=== PATIENT | female | born 1960 | race Caucasian/White ===

== ENCOUNTER → 2017-02-19 | Outpatient (CLI) | payer BC ==
[~2017-02-19] MED LIST: CALC-51 PO; CETI10TA10 PO; CHOL100010 PO; CYCL0.052 OPB; GLUCPOW41 PO; MULT-506 PO; OMEGCAP2 PO; TRAZ100T29 PO; VITACAP26 PO
--- NOTE | 2017-02-20 12:17 | MAMMOGRAPHY REPORT ---
BILATERAL DIGITAL SCREENING MAMMOGRAM TOMOSYNTHESIS WITH CAD: 02/19/2017 CLINICAL HISTORY: Routine screening. Patient has no complaints. TECHNIQUE: Breast tomosynthesis in addition to standard 2D mammography was performed. Current study was also evaluated with a Computer Aided Detection (CAD) system. COMPARISON: Comparison is made to exams dated: 02/17/2016 mammogram, 02/08/2015 mammogram, 02/05/2014 mammogram, 02/04/2013 mammogram, 02/02/2012 mammogram, and 01/31/2011 mammogram - [facility]. BREAST COMPOSITION: The tissue of both breasts is heterogeneously dense, which may obscure small ma sses. FINDINGS: No suspicious mass, architectural distortion or cluster of microcalcifications is seen. An asymmetry in the medial posterior left breast appears similar to prior mammograms dating back to at least 01/31/2011, therefore likely benign. IMPRESSION: ACR BI-RADS CATEGORY 1: NEGATIVE There is no mammographic evidence of malignancy. A 1 year screening mammogram is recommended. The p atient will receive written notification of the results. Approximately 10% of breast cancers are not detected with mammography. A negative mammographic repor t should not delay biopsy if a clinically suggestive mass is present. Mya Brooks M.D. ay/:02/19/2017 22:40:19 Retreader: Julienne MOON)(Peggy), [facility] letter sent: Normal 1/2 BI-RADS Code: ACR BI-RADS Category 1: Negative
== END | disposition home or self-care (01) ==
LOC: C.MAMM 14:05
PROVIDERS: ATTEND Family Medicine
DX: Z12.31 Encounter for screening mammogram for malignant neoplasm of breast (principal)

== ENCOUNTER → 2018-02-20 | Outpatient (CLI) | payer OTHER ==
--- NOTE | 2018-02-21 14:44 | MAMMOGRAPHY REPORT ---
BILATERAL DIGITAL SCREENING MAMMOGRAM TOMOSYNTHESIS WITH CAD: 02/20/2018 CLINICAL HISTORY: Routine screening. Patient has no complaints. TECHNIQUE: Breast tomosynthesis in addition to standard 2D mammography was performed. Current study was also evaluated with a Computer Aided Detection (CAD) system. COMPARISON: Comparison is made to exams dated: 02/19/2017 mammogram, 02/17/2016 mammogram, 02/08/2015 ma mmogram, 02/05/2014 mammogram, 02/04/2013 mammogram, and 02/02/2012 mammogram - [facility]. BREAST COMPOSITION: The tissue of both breasts is heterogeneously dense, which may obscure small mas ses. FINDINGS: The parenchymal pattern is unchanged. No developing mass, architectural distortion or clus ter of suspicious microcalcifications is seen in either breast. IMPRESSION: ACR BI-RADS CATEGORY 2: BENIGN There is no mammographic evidence of malignancy. A 1 year screening mammogram is recommended. The pa tient will receive written notification of the results. Approximately 10% of breast cancers are not detected with mammography. A negative mammographic report should not delay biopsy if a clinically suggestive mass is present. Mya Brooks M.D. ay/:02/20/2018 15:39:33 [employer] And Se[employer] Manager: Gabby Chambers, [facility] letter sent: Normal 1/2 BI-RADS Code: ACR BI-RADS Category 2: Benign
== END | disposition home or self-care (01) ==
LOC: C.MAMM 13:28
PROVIDERS: ATTEND Family Medicine
DX: Z12.31 Encounter for screening mammogram for malignant neoplasm of breast (principal)

== ENCOUNTER → 2018-02-27 | Outpatient (CLI) | payer OTHER ==
--- NOTE | 2018-02-27 09:02 | DIAGNOSTIC IMAGING REPORT ---
(CHEST) THORAX WITHOUT CT DOSE: 412.39 mGy.cm HISTORY: Cough. Short of breath. TECHNIQUE: Multiaxial CT images of the chest were performed without contrast. A dose lowering technique was utilized adhering to the principles of ALARA. COMPARISON: Chest CT 09/27/2011. FINDINGS: Mild biapical pleural-parenchymal scarring, unchanged. The central airways are patent. No pleural effusions. No pneumothorax. Stable 2 mm nodule within the left lung apex on image 40. Therefore, this is considered to be benign. Mild elevation of the left hemidiaphragm. No focal lung consolidations to suggest pneumonia. Mild pectus excavatum deformity. A 1.7 cm left thyroid nodule. The visualized liver, spleen, and adrenal glands are unremarkable. Subcentimeter hypodense lesion within the upper pole the left kidney is too small to characterize but statistically represents a cyst. Normal caliber thoracic aorta. The heart is normal in size. Subcentimeter mediastinal lymph nodes do not meet CT criteria for pathologic involvement. No hilar lymphadenopathy. IMPRESSION: 1. No focal lung consolidations to suggest pneumonia. 2. Mild elevation of the left hemidiaphragm. 3. A 1.7 cm left thyroid nodule. Dedicated thyroid ultrasound is recommended for further evaluation. Electronically signed by: Kirill Cormier M.D. 02/27/2018 9:01 AM Dictated Date/Time: 02/27/2018 8:52 AM
== END | disposition home or self-care (01) ==
LOC: C.CTS 08:35
PROVIDERS: ATTEND Family Medicine
DX: R05 Cough (principal); R06.09 Other forms of dyspnea; E04.1 Nontoxic single thyroid nodule

== ENCOUNTER → 2018-03-05 | Outpatient (CLI) | payer OTHER ==
--- NOTE | 2018-03-05 12:17 | DIAGNOSTIC IMAGING REPORT ---
ADDENDUM IMPRESSION: IMPRESSION: #2 should read several small left thyroid lobe cysts Electronically signed by: Teofilo Gonzalez M.D. 03/06/2018 7:03 AM Dictated Date/Time: 03/06/2018 7:02 AM ORIGINAL REPORT SOFT TISS HEAD/NECK-THYROID HISTORY: Thyroid nodule NON TOXIC THYROID NODULE COMPARISON: CT chest 02/27/2018 FINDINGS: Right lobe: Maximum dimension 4.9 cm. Uniform echogenicity. Left lobe: Maximum dimension 4.4 cm. 3 and 4 mm cysts at the lower pole. 2.0 x 1.2 cm heterogeneous partially cystic and partially echogenic nodule upper pole left thyroid. Although somewhat difficult to target, fine-needle aspiration should be considered. Isthmus: No nodules. IMPRESSION: 1. Normal right thyroid. 2. Several small left renal cyst. 3. Complex partially echogenic nodule upper aspect left thyroid. Follow-up considerations include a six-month follow-up versus fine-needle aspiration with ultrasound guidance. The above report was generated using voice recognition software. It may contain grammatical, syntax or spelling errors. Electronically signed by: Teofilo Gonzalez M.D. 03/05/2018 12:16 PM Dictated Date/Time: 03/05/2018 12:13 PM
== END | disposition home or self-care (01) ==
LOC: C.ULTR 11:40
PROVIDERS: ATTEND Family Medicine
DX: E04.1 Nontoxic single thyroid nodule (principal)

== ENCOUNTER → 2018-03-21 | Outpatient (CLI) | payer OTHER ==
--- NOTE | 2018-03-21 11:50 | DIAGNOSTIC IMAGING REPORT ---
ULTRASOUND GUIDED FINE-NEEDLE ASPIRATION OF LEFT LOBE THYROID NODULE CLINICAL HISTORY: Left lobe thyroid nodule. COMPARISON STUDY: Thyroid ultrasound March 05, 2018. PROCEDURE: Sonography thyroid gland again demonstrated a 2 cm mixed solid and cystic nodule within the upper pole of the left lobe. This was targeted for fine needle aspiration. Procedure, risks and benefits were discussed with the patient including the risk of bleeding, infection and injury to adjacent structures. The patient agreed to the procedure and informed written consent was obtained. The procedure was performed by Dr. Lamar following a timeout. Skin was prepped and draped in sterile fashion and local anesthesia was achieved with 1% lidocaine. Under direct ultrasound guidance, 1 25-gauge fine aspiration was performed. The sample was deemed preliminarily adequate by pathology. The patient tolerated the procedure well and no immediate complications were evident. IMPRESSION: Successful ultrasound guided fine needle aspiration of 2 cm left lobe thyroid nodule. Electronically signed by: Kin Lamar M.D. 03/21/2018 11:49 AM Dictated Date/Time: 03/21/2018 11:47 AM
== END | disposition home or self-care (01) ==
LOC: C.ULTR 10:50
PROVIDERS: ATTEND Family Medicine
DX: E04.1 Nontoxic single thyroid nodule (principal)

== ENCOUNTER 2025-08-26 05:34 | Observation (INO) ==
--- NOTE | 2025-08-04 09:41 | PAT Medication Instructions ---
Medication Instructions Date of Service August 04, 2025 Home Medications calcium carbonate (Calcium 500) 500 mg PO QAM cholecalciferol (vitamin D3) 25 mcg (1,000 unit) tablet (Vitamin D3) 1,000 unit PO QAM PRN hydroxyzine HCl 25 mg tablet 25 mg PO HS metformin 500 mg tablet 500 mg PO QAM omega-3 fatty acids 1,000 mg PO QAM pantoprazole 40 mg tablet,delayed release 40 mg PO QAM atorvastatin 20 mg tablet 20 mg PO QAM pregabalin 50 mg capsule 50 mg PO BID STOP taking 2 weeks before surgery (or as soon as possible if surgery is within 2 weeks) omega-3 fatty acids 1,000 mg PO QAM DO NOT take the morning of surgery calcium carbonate (Calcium 500) 500 mg PO QAM cholecalciferol (vitamin D3) 25 mcg (1,000 unit) tablet (Vitamin D3) 1,000 unit PO QAM PRN metformin 500 mg tablet 500 mg PO QAM Take morning of surgery With a small sip of water, OTHERWISE NOTHING TO EAT OR DRINK AFTER MIDNIGHT: pantoprazole 40 mg tablet,delayed release 40 mg PO QAM atorvastatin 20 mg tablet 20 mg PO QAM pregabalin 50 mg capsule 50 mg PO BID Take evening before surgery hydroxyzine HCl 25 mg tablet 25 mg PO HS pregabalin 50 mg capsule 50 mg PO BID Other Notes If you have any questions please call us at [phone] or [phone] or [phone] or [phone]
--- NOTE | 2025-08-06 14:38 | Anesthesiology Consultation ---
Date of Service August 06, 2025 Assessment & Plan (1) Encounter for pre-operative examination: - Check BSG DOS - Infectious disease screening: Per assessment on 08/06/25- No known recent infectious disease contacts or current infectious disease symptoms. - Acceptable risk for surgery pending surgeon-ordered PCP preop evaluation ([facility], appt ~08/14). Chart Review Chart Review: Patient seen in Pre Admission Testing Teaching & Discussion Pre-Anesthesia Teaching/Discussion Notes: Instructed NPO after midnight before surgery,except medications with 15 cc of water. Medication instructions provided according to the PAT guidelines. History Surgery Operation Date: 08/26/25 07:00 Proposed Procedures p Right Patella Femoral Replacement to Total Knee Arthroplasty - Josesito Vargas MD Height/Weight Height: 5 ft 5 in Weight: 82.7 kg Allergies Allergy/AdvReac Type Severity Reaction Status Date / Time No Known Allergies Allergy Unknown Verified 08/03/25 09:46 Medications Home Medications Medication Instructions Recorded Confirmed Last Taken calcium carbonate (Calcium 500) 500 mg PO QAM 12/14/19 08/03/25 09/10/24 cholecalciferol (vitamin D3) 25 1,000 unit PO QAM PRN winter only 12/14/19 08/03/25 09/10/24 mcg (1,000 unit) tablet (Vitamin D3) hydroxyzine HCl 25 mg tablet 25 mg PO HS 09/04/24 08/03/25 09/10/24 metformin 500 mg tablet 500 mg PO QAM 09/04/24 08/03/25 09/10/24 omega-3 fatty acids 1,000 mg PO QAM 09/04/24 08/03/25 09/10/24 pantoprazole 40 mg tablet,delayed 40 mg PO QAM 09/04/24 08/03/25 09/10/24 release atorvastatin 20 mg tablet 20 mg PO QAM 08/03/25 08/03/25 Unknown pregabalin 50 mg capsule 50 mg PO BID 08/03/25 08/03/25 Unknown Past Medical History Medical History GERD (gastroesophageal reflux disease) History of Chiari malformation Repaired 2004 No subsequent/current issues History of COVID-19 06/2023: cold symptoms, resolved except residual altered taste and smell Hyperlipidemia Pre-diabetes Taking metformin daily Exercise / Class Metabolic Activity II 4-5 Yardwork/Stairs/Walk up hill Past Family History Family History Father FHx: colon cancer FHx: liver cancer FHx: lung cancer Other Cancer Lung disease Past Surgical History Surgical History H/O arthroscopic knee surgery H/O sinus surgery H/O toe surgery left foot toe surgery H/O wrist surgery R/L (for OA) History of colonoscopy (2023) History of craniotomy (2004) chiari malformation surgery History of esophagogastroduodenoscopy (EGD) Status post left partial knee replacement (2017) Status post right partial knee replacement (2017) Past Anesthesia History No Hx of Anesthesia Complications and No Family Hx of Anesthesia Complications History of PONV No Hx of Motion Sickness and History of PONV Social History Smoking Status: Never smoker Do You Dip or Chew Tobacco: No Hx Alcohol Use: Yes Alcohol type: beer alcohol intake frequency: 3 or more drinks per day (2-3/day) Hx Substance Use: No substance use type: does not use Review of Systems Patient denies chest pain, shortness of breath, dyspnea on exertion, fever, chills, cough, wheezing, palpitations. Physical Exam Vital Signs BP 111/76 P 90 TEMP 98.4 SP02 95%RA RESP 16 Physical Full cervical extension range of motion. Full TMJ range of motion. TMD 3 finger breaths Mallampati Score III Dentition: intact Lungs: clear throughout to auscultation Cardiac: regular rate and rhythm, no murmurs noted Spine: normal Carotid arteries: negative bruit Extremities: no LE edema Lab Results Anesthesia Preop Results Results Anesthesia Widget: WBC 8.30 K/ul (4.8-10.8) 08/06/25 Hgb 14.0 g/dl (12.0-16.0) 08/06/25 Hct 41.1 % (37.0-47.0) 08/06/25 Plt 378 K/uL (130-400) 08/06/25 Na 135 mmol/L (136-145) L 08/06/25 K 4.7 mmol/L (3.5-5.1) 08/06/25 Cl 98 mmol/L (98-107) 08/06/25 CO2 31 mmol/L (21-32) 08/06/25 BUN 14 mg/dl (6-23) 08/06/25 Creat 0.62 mg/dl (0.6-1.2) 08/06/25 Glucose Level 147 mg/dl (70-99(Fasting)) H 08/06/25 PT 10.5 Seconds (9.0-12.0) 08/06/25 PTT 29 Seconds (21-31) 08/06/25 INR 1.0 (0.9-1.1) 08/06/25 HA1c 6.5 % (4.5-5.6) H 08/06/25 Urine Color Yellow 08/06/25 Urine Appearance Clear (Clear) 08/06/25 Urine pH 6.0 (4.5-7.5) 08/06/25 Urine Specific [place] 1.015 (1.000-1.030) 08/06/25 Urine Protein Negative (Negative) 08/06/25 Urine Glucose (UA) Negative (Negative) 08/06/25 Urine Ketones Negative (Negative) 08/06/25 Urine Blood 1+ (Negative) H 08/06/25 Urine Nitrite Negative (Negative) 08/06/25 Urine Bilirubin Negative (Negative) 08/06/25 Urine Urobilinogen Negative (Negative) 08/06/25 Urine Leukocyte Esterase 2+ (Negative) H 08/06/25 Urine WBC (Auto) 11-20 /hpf (0-5) H 08/06/25 Urine RBC (Auto) 3-5 /hpf (0-2) H 08/06/25 Urine Hyaline Casts (Auto) 0-2 /lpf (0-2) 08/06/25 Urine Epithelial Cells (Auto) 3-5 /hpf (0-2) H 08/06/25 Urine Bacteria (Auto) None Seen (None Seen) 08/06/25 Blood Type O Positive 08/06/25 Antibody Screen NEGATIVE 08/06/25 Testing Laboratory Results Urine culture 08/06/25: probable skin teresa Electrocardiogram Date: 08/06/25 NSR at 91bpm. "Normal ECG" Chest X-Ray Date: 08/06/25 FINDINGS: Heart size and pulmonary vasculature are normal. Lungs are mildly hyperexpanded. No consolidation or pleural effusion. No pneumothorax. IMPRESSION: No acute findings.
--- NOTE | 2025-08-26 05:28 | History & Physical Bridge Note ---
Date of Service August 26, 2025 History & Physical Bridge Note I have examined the patient, reviewed the History & Physical and in the interval since the performance of the History & Physical I have noted the following changes of clinical significance:reviewed risks such as pain,DVT/PE,infection. CRP and ESR at low risk levels. she consents to proceed. no changes noted.
[2025-08-26] MEDS: LR 500ML BOLUS, THEN 15ML/HR IV SCH (06:20)
[2025-08-26] MEDS: LR 60ML/HR IV SCH (06:21)
[2025-08-26] MEDS ORDERED: PROPOFOL IV EMULSION 10 MG/ML 20 ML VIAL IV ONE ×3 (06:32→08:39)
[2025-08-26] MEDS ORDERED: MIDAZOLAM HCL 1 MG/ML 2ML VIAL ONE (06:32)
[2025-08-26] MEDS ORDERED: ONDANSETRON INJ 2 MG/ML 2 ML VIAL ONE (06:32)
[2025-08-26] MEDS ORDERED: ONDANSETRON INJ 2 MG/ML 2 ML VIAL IV PRN ×2 (06:33→12:01)
[2025-08-26] MEDS ORDERED: ATROPINE SULFATE 0.1 MG/ML 10ML SYR IV PRN (06:33)
[2025-08-26] MEDS ORDERED: BUPIVACAINE 0.5 % 5 MG/1 ML PF 10ML VIAL ONE (06:34)
[2025-08-26] MEDS ORDERED: ROPIVACAINE 0.5% 5 MG/ML 30 ML VIAL ONE (06:34)
[2025-08-26] MEDS: TRANEXAMIC ACID 1,000 MG **IV Pre-op IV SCH (06:43)
[2025-08-26] MEDS: ORTHO JOINT ANESTHETIC ONE (07:38)
[2025-08-26] MEDS ORDERED: PHENYLEPHRINE 100MCG/ML 5ML SYR ONE (07:55)
[2025-08-26] MEDS: ROPIV 0.5% 246mg, Ketorolac 30mg, EPINEPHrine 0.5mg in NSS INFIL SCH (08:31)
--- NOTE | 2025-08-26 09:00 | Post Operative Brief Note ---
Immediate Post Op Note Date of Surgery August 26, 2025 Pre & Post Diagnosis Operation Date: 08/26/25 07:00 <No data on this case meets the specified criteria> Painful partial knee replacement patellofemoral joint pre and postop diagnosis same with poly wear patella reactive synovitis secondary particulate disease grade 3 early grade 4 disease medial compartment right knee I identified the patient and participated in the time-out.: Yes Procedure Operation Date: 08/26/25 07:00 <No data on this case meets the specified criteria> Conversion of patellofemoral replacement by extracting and converting to cemented right total knee replacement Surgeon Josesito Vargas MD Casino Attendant [employer] no resident or fellow available Estimated Blood Loss 50 Findings Consistent with Post-Op Diagnosis Medial 50% of the patellar poly was worn 50% depth reactive synovitis grade 3 and grade 4 disease medial compartment femur and tibia relatively intact lateral compartment Fluids See anesthesia report Complications None
--- NOTE | 2025-08-26 09:05 | Operative Report ---
Post Operative Report Pre & Post Diagnosis Operation Date: 08/26/25 07:00 Pre-Op Diagnosis: Right Knee Osteoarthritis Post-Op Diagnosis: Right Knee Osteoarthritis I identified the patient and participated in the time-out.: Yes Procedure Operation Date: 08/26/25 07:00 Actual Procedures p Right Patella Femoral Replacement to Total Knee Arthroplasty(Right) - Josesito Vargas MD Surgeon APRYL Vargas MD Cash Room Clerk [facility] PAC no resident or fellow available Estimated Blood Loss 50 Findings Consistent with Post-Op Diagnosis see operative report Specimens see operative report Drains none Complications none Disposition Accompanied Patient To Recovery: Yes Indications This 65 year old female presents to the office with complaints of persisting right knee pain. She had previously undergone patellofemoral joint replacement at another facility. The patient complained of continuing pain in the knee with activity and rest. She had tried conservative care measures without impr ovement. She elected to proceed with surgical invention after being educated about potential risks and outcomes. Preoperative imaging was obtained. Description of Procedure The patient was administered a spinal anesthetic and then taken to the operating room where she was given sedation. She was prepped and draped in the usual sterile fashion. Please see Dr. Vargas's operative report for specifics of the procedure. I was present for the entire case from initial patient positioning through final wound closure. Assistance was provided in tissue retraction, hemostasis, old implant removal, trial implant placement, final implant placement, and final wound closure. The patient was taken to the recovery room in satisfactory condition. I attest to the content of the Intraoperative Record and any orders documented therein. Any exceptions are noted below.
--- NOTE | 2025-08-26 09:07 | Operative Report ---
Post Operative Report Pre & Post Diagnosis Operation Date: 08/26/25 07:00 <No data on this case meets the specified criteria> Painful patellofemoral knee replacement chronic pre and postop diagnosis same right knee I identified the patient and participated in the time-out.: Yes Procedure Operation Date: 08/26/25 07:00 <No data on this case meets the specified criteria> Extraction patellofemoral joint replacement conversion to right total knee replacement cemented Surgeon Josesito Vargas MD Engine Tester [employer] no resident or fellow available Estimated Blood Loss 50 Findings Consistent with Post-Op Diagnosis Significant poly wear 50% medial to lateral wear on the medial side of the patella 50% loss of depth reactive synovitis grade 3 4 disease medial compartment Fluids See anesthesia report Specimens Bone and synovial pathology, culture Drains None Complications None Indications Chronic pain post the knee replacement escalated by recent trauma Description of Procedure After patient was appropriate notified site verified consent verified antibiotics held until knee was aspirated Timeout was performed area prepared with Betadine and aspirated for 20 cc of clear synovial fluid sent off for cell count with differential, Gram stain, anaerobic and anaerobic cultures. Preoperatively ESR and CRP were low and were not concerning for infection but for completeness these were performed. This was identified with the patient preop and warned of the could be an indolent low-grade infection which could change the postoperative treatment with antibiotics. Once the aspirate was sent off the knee was then prepped and draped in usual routine fashion antibiotics were given as well as TXA. The tourniquet was then inflated after exsanguination the limb with a rubber band for total of 66 minutes. The old incision was utilized and extended proximally and distally approximately 2 inches in both directions. Full-thickness flaps raised. Parapatellar arthrotomy performed. Once the patella was everted 1 could see the significant wear pattern of the patella. It was therefore elected that the at this would need to be converted as well. Synovectomy was completed there was definite particulate reactive synovitis. There was a large Caraballo's cyst posteriorly that was evacuated. There was no purulence. Once this was all debrided the knee was easily flexed then a pencil bur was used to work around the entire metal trochlear implant. Once this was done the step osteotome was utilized to lift up the implant came out easily there was no bone fracture. The cement was left in place. The box was then opened up with the knee flexed pencil bur used to open up the distal femur and then the centralizing drill bit placed. Once this was done the cutting block was then applied and 11 mm cut off the distal femur femur was then sized to a 5 and appropriate anterior posterior condylar chamfer cuts made flexion gap and extension gaps were excellent once the tibial cut was made this was assessed. The box cut was then made and the size 5 oh seating holes made and the size 5 fit well. Tibia was sized to a 3 and appropriate block placed on the tibial surface appropriate reaming and broaching carried out. Trial reduction was carried out with a size 5 giving excellent flexion extension stability and excellent range of motion of the patella tracked reasonably well. The patella was everted it was then resected leaving roughly 14 mm of bone the remaining poly was removed and then the permanent the trial holes made for the new button seated well tracked well. Ortho mix was then injected all around the knee trial elements were removed for this. The wound was then soaked in Betadine for 3 minutes then irrigated. The wound was then dried and then the permanent cemented into position tibia femur patella in that order at 12 minutes the tourniquet was deflated additional dose of TXA given 2 minutes prior to that. There was no major bleeding encountered. At 14 minutes the knee was flexed out of the implants were stable there was no cement removal required to trial poly was removed. The permanent poly seated the knee reduced and then closed at 40 to 50 degrees of flexion with #2 Vicryl. An external lateral release was performed at the synovium intact. This was tried to decrease any tilt which may have led to the wear of her previous patella. Was irrigated 1 final time with Betadine Pulsavac and then closed with 2-0 Vicryl stainless to clips. Appropriate dressing applied including a rubber Painting cotton. Patient was transferred recovery in satisfactory descending tolerated the procedure well. Her Elissa was contacted [phone]. He was appreciative of the call. Summary of implants ATT UNE [employer] total knee replacement system 5 narrow right femur posterior cruciate substituting 3 rotating platform tibia 35 patella 5 x 5 rotating platform insert size 5 5 mm thick. EBL was 50 cc or less celiobart aguilar per anesthesia bone path and synovial pathology pending culture pending DVT PE prophylaxis to begin tomorrow. I attest to the content of the Intraoperative Record and any orders documented therein. Any exceptions are noted below.
--- NOTE | 2025-08-26 09:08 | Orthopedic Progress Note ---
Date of Service August 26, 2025 Orthopedic Progress Note Patient underwent conversion of patellofemoral implant to total knee replacement. Tolerated well. Denies chest pain shortness of breath fever chills nausea vomit or headache. Vital signs are stable she is afebrile. Neurovascular check limited by spinal. Wound dressing clean dry and intact postop x-rays pending. contacted. Continue care pathway.
--- NOTE | 2025-08-26 09:10 | Discharge Summary ---
Date of Service August 27, 2025 Admission HPI Per Admitting Provider Painful partial knee replacement patellofemoral joint underwent to conversion to total knee replacement right knee Principal Diagnosis Conversion of partial knee replacement to total knee replacement extraction of previous partial patellofemoral replacement right knee Discharge Data Allergies Allergy/AdvReac Type Severity Reaction Status Date / Time No Known Allergies Allergy Unknown Verified 08/26/25 05:44 Vaccinations None Consultations None Procedures Performed Operation Date: 08/26/25 07:00 <No data on this case meets the specified criteria> Extraction of patellofemoral placement conversion to total knee replacement right knee Ordered Studies 08/26/25 05:00 US - OR guided needle placemen Routine Bone pathology synovial pathology culture x-ray Hospital Course (1) Status post right knee replacement: Total Time Total Time Spent Total Time Spent (In Minutes): 10 Discharge Plan Discharge Items Patient Disposition: Home - Home Health Services Reason For Visit: Right Knee Osteoarthritis Discharge Diagnosis: Revision total knee replacement right knee Condition on Discharge: Good Activity: Per Instructions section Lifting: Wait until after follow-up appointment Bathing: Keep incision dry Sexual Activity: Wait until after follow-up appointment Exercise/Sports: Wait until after follow-up appointment Driving/Machine Use: No driving until cleared by Dr. Vargas Weightbearing: Full weightbearing Non-emergency contact: Surgeon Call non-emergency contact if: you have any medication questions, your pain is not controlled, your temperature is above 101, your wound has increased redness, your wound has increased drainage and your wound pain has increased Follow-up/Referrals: Jaime Donis PA-C [Physician Director Marketing Communications] - 09/10/25 PCP,NO [Primary Care Provider] - Add Attending Provider Instructions: New Medicine: * You will likely be taking one or more of these medications: 1. Percocet - Take, as directed, when you need it, every four to six hours to control your pain. 2. Iron Sulfate - Take 1x each day for the month after surgery to help you replace the blood lost during surgery. 3. Eliquis- Thins your blood to lessen the chance of forming a blood clot. * The most common side effects of pain medicine and iron are nausea and constipation. If nausea or constipation is too much of a problem or if you have any questions about your new medicines or doses, call [facility] at . We will try to help you manage these issues. "VERY IMPORTANT TO READ AND REVIEW" Blood Clots and Blood Thinning Medicine: * You are given Eliquis during the immediate post-operative period to lessen the risk of blood clots forming in your legs and/or lungs. It is usually given for six weeks after surgery. Pain: * The immediate post-operative period after knee replacement surgery is often quite painful. * You are given a prescription for pain medicine. You should take it, as directed, when you need it, especially before physical therapy and before going to bed. Pain that interferes with sleep is very common and can last several months. * You will likely need pain medicine for the first four to six weeks. It will not stop all of the pain. The pain will lessen and as you feel better, you may change to milder pain medicine such as Tylenol. * The most common side effects of pain medicine are nausea and constipation, so don't take more than you need. Physical Therapy: * You will have physical therapy two or three times each week for four to six weeks after your surgery in order to regain your knee range of motion and to retrain your knee to work properly. * It is just as important to make sure you are getting your knee perfectly straight as it is to regain your knee bend. * Taking a pain pill an hour before therapy can help you have a more productive and comfortable therapy session if needed. Home Exercise: * You were shown a series of exercises (heel props, heel slides, etc.) in the hospital. Do these exercises three to four times each day including the exercises you were shown in physical therapy. Walking: * Get up and walk several times each day. For the first four weeks, try not to stand or walk for more than one hour at a time. If you do stand or walk for more than one hour, you will not hurt anything, but your knee and leg will likely swell. * As you feel comfortable, you may change from the walker or crutches to a cane and then to independent walking. SELF CARE INSTRUCTIONS AFTER TOTAL KNEE REPLACEMENT A. You may need to continue a physical therapy program after discharge from the hospital. There are several options available to you. Your doctor will assist you in selecting the best one for you. 1. An out-patient facility 2 to 3 times a week for therapy or home therapy. 2. Continue working on all exercises taught to you in the hospital. Your goals should be to increase bending of your knee to 90 degrees and beyond and to fully straighten your knee. B. You may progress at your own pace from walking with a walker or crutches to a cane; then to no assistive devices. C. Make walking a part of your daily routine. Be up as much as comfortable with rest periods throughout the day. Rest with leg elevation is very important. Use the ice wrap frequently for the first 3-4 weeks. D. There are no restrictions on activities. You may ride in a car, shop, participate in spray booth operator and all social activities. E. Wear the long elastic stockings (LORI hose) 20 hours a day for six weeks after surgery. They can be removed several times a day for laundering and for a shower. F. Do not place a pillow behind your knee when resting. A pillow at your ankle is okay. G. You may return to previous diet. VERY IMPORTANT TO READ AND REVIEW A. Take Eliquis (blood thinning medication) as directed by your doctor. B. There are a few signs you need to watch for after you are home. Call [facility] if you notice any of the followin. Increased severe knee pain. Some pain is expected especially when you exercise. 2. Increased swelling in your leg or knee; pain or swelling of the calf muscle in either lower leg. 3. Any fluid drainage from the incision. 4. Shortness of breath or chest pain. C. Please call [facility] at if you have any concerns or questions about your operation or recovery. The doctor or his nurse will return your call promptly. D. You must take antibiotics before dental work, bladder, bowel or other surgery. Call the office to obtain a prescription at least 2 days prior to your appointment. * CALL IF INCREASED PAIN, REDNESS, DRAINAGE OR FEVER GREATER THAT 101. * Sutures should be removed 14-15 days after surgery unless you are on chronic steroids, then it will be 14-18 days after surgery. Call your doctor if: * Temperature above 101 degrees F. * Pain not relieved by pain medicine ordered. * Increased drainage or redness from incision. * Notify your doctor with any questions or concerns. MEDICATIONS: * Please take your prescriptions as instructed at your pre-op appointment and/or see medication discharge instructions listed above. * If concerns develop, call your physician's office at . SPECIAL CARE INSTRUCTIONS: * Ice/Elevate as instructed. * Keep dressing clean, dry, intact. * Your surgical extremity may be discolored due to prepping agents used on the skin. A bluish-green tint is a normal variant and should not cause alarm. Call your doctor at [phone] if: * Temperature above 101 degrees * Pain not relieved by pain medicine ordered * There is increased drainage or redness from any incision * You have any unanswered questions, problems or concerns. FOLLOW UP VISIT: * If not already scheduled, please call the office at to schedule a follow-up appointment. He is a knee immobilizer when out of bed today and tomorrow. He can be discontinued entirely on Sunday morning Use your walker for ambulation Ice and elevate the knee frequently to reduce pain and swelling Leave your dressings in place over the weekend. They can be changed by home health on Sunday if needed for soiling. If they are clean, they can be left in place until your follow-up appointment Continue your Eliquis tonight with dinner. Take it 2 times per day for 6 weeks to prevent clots Pending Studies at Discharge: Yes Studies:: Bone pathology and joint fluid culture Stand-Alone Forms: My [facility], Smoking Cessation Medications and DC Order Prescriptions: No Action calcium carbonate [Calcium 500] 500 mg calcium (1,250 mg) Tablet 500 mg PO QAM cholecalciferol (vitamin D3) [Vitamin D3] 25 mcg (1,000 unit) Tablet 1,000 unit PO QAM PRN (Reason: winter only) Rx Instructions: ONLY TAKES IN THE WINTER metformin 500 mg Tablet 500 mg PO QAM pantoprazole 40 mg Tablet,Delayed Release (Dr/Ec) 40 mg PO QAM hydroxyzine HCl 25 mg Tablet 25 mg PO HS omega-3 fatty acids Capsule 1,000 mg PO QAM atorvastatin 20 mg Tablet 20 mg PO QAM pregabalin 50 mg Capsule 50 mg PO BID cetirizine [Zyrtec] 5 mg Tablet 5 mg PO DAILY PRN (Reason: Allergic Symptoms) Admission Data Admit Date/Time: 08/26/25 09:14 Attending Provider: Josesito Vargas Admit Provider: Josesito Vargas Primary Care Provider: PCP,NO Other Providers: [facility]
--- NOTE | 2025-08-26 09:30 | XRay Report ---
XR knee RT 1 or 2V routine CLINICAL HISTORY: S/P R TKA COMPARISON: None FINDINGS: Right knee prosthesis. No hardware complication. There is expected soft tissue gas. Skin s taples are present. IMPRESSION: Unremarkable postoperative exam. ACT 112: Negative or not required by law. Electronically signed by: Gideon Pepper M.D. 08/26/2025 9:29 AM
[2025-08-26 09:42] LABS: Color Synovial Fluid Yellow; Mononuclear WBC Synovial 87.1 %; Polynuclear WBC Synovial 12.9 %; RBC Synovial Fluid Auto 2000 /uL; Source Synovial Fluid Right Knee; WBC Synovial Fluid Auto 257 /ul (0-200)
--- NOTE | 2025-08-26 09:55 | Anesthesiology Progress Note ---
Date of Service August 26, 2025 Anesthesia Post Procedure Vital Signs Vital Signs: Temp Pulse Resp BP Pulse Ox O2 Del Method O2 Flow Rate 08/26/25 09:50 36.4 C L 75 16 118/74 98 Nasal Cannula 2 08/26/25 09:40 77 16 120/66 100 Nasal Cannula 2 08/26/25 09:30 83 16 107/64 97 Room Air 08/26/25 09:20 79 18 101/66 94 Room Air 08/26/25 09:10 82 22 103/67 99 Room Air 08/26/25 09:00 36.4 C L 79 12 91/56 L 97 Room Air 08/26/25 05:53 37.2 C 92 H 18 127/80 93 Room Air Pain Intensity Right Foot: Pain Intensity: 3 Notes Mental Status: alert / awake / arousable Patient Amnestic to Procedure: Yes Nausea / Vomiting: adequately controlled Pain: adequately controlled Airway Patency, RR, SpO2: stable & adequate BP & HR: stable & adequate Hydration State: stable & adequate Neuraxial Anesthesia: was administered and sensory block is resolving Anesthetic Complications: no major complications apparent
[2025-08-26] MEDS ORDERED: MAGNESIUM HYDROXIDE SUSP 30 ML UDC PO PRN (12:01)
[2025-08-26] MEDS ORDERED: VANCOMYCIN CONSULT ACTIVE PRN (12:01)
[2025-08-26] MEDS ORDERED: NALOXONE HCL 0.4 MG/1 ML VIAL/CARP IV PRN (12:01)
[2025-08-26] MEDS ORDERED: ALUMINUM/MAGNESIUM SUSP 30 ML UDC PO PRN (12:01)
[2025-08-26] MEDS ORDERED: CETIRIZINE HCL 10 MG TABLET PO PRN (12:01)
[2025-08-26] MEDS ORDERED: diphenhydrAMINE 50 MG/ML VIAL IV PRN (12:01)
[2025-08-26] MEDS ORDERED: METOCLOPRAMIDE HCL INJ 5 MG/ML 2 ML VIAL IV PRN (12:01)
--- NOTE | 2025-08-26 12:27 | Orthopedic Progress Note ---
Date of Service August 26, 2025 Orthopedic Progress Note Postop check she is doing well in the recovery room. She is waiting for a bed. She asked about going home. I told her would like to give her the appropriate medication and rehab. Since this is a revision. Type surgery. She also is in a Anam Painting dressing it would need to be changed tomorrow morning. She states she understands. Her vancomycin is still pending. She will also need her Ancef. Vital signs are stable she is afebrile. Neurovascular check femoral sciatic nerve is normal. She can do a straight leg raise she can do ankle dorsi and plantarflexion with excellent strength. Range of motion in the dressing is roughly near 0 to roughly near 50 to 60 degrees. Wound dressing is clean dry and intact. Postop x-rays look excellent. Assessment overall doing well continue with care pathway. Discharge to home tomorrow. Synovial fluid analysis to date looks good Gram stain is negative and white cell count was less than 260. With predominant non-neutrophils.
[2025-08-26] MEDS: KETOROLAC TROMETHAMINE 15 MG/ML VIAL IV SCH (13:06)
[2025-08-26] MEDS: ACETAMINOPHEN 500 MG TAB PO SCH (13:06)
[2025-08-26] MEDS: SODIUM CHLORIDE 0.9% 1,000 ML IV SCH (13:12)
[2025-08-26] MEDS: VANCOMYCIN HCL 1,250 MG in SODIUM CHLORIDE 0.9% 250 ML IV ONE (13:24)
[2025-08-26] MEDS: HYDROmorphone INJ 0.5 MG/0.5 ML SYR IV PRN (16:49)
[2025-08-26] MEDS: FERROUS GLUCONATE 324 MG TAB PO SCH (17:42)
[2025-08-26] MEDS: ASCORBIC ACID 500 MG TAB PO SCH (17:42)
[2025-08-26] MEDS: PREGABALIN 50 MG CAP PO SCH (21:29)
[2025-08-26] MEDS: DOCUSATE SODIUM 100 MG CAP PO SCH (21:29)
[2025-08-26] MEDS: SENNA 8.6 MG TAB PO SCH (21:29)
[2025-08-27 04:13] VITALS: TEMP 98.2
[2025-08-27 06:15] LABS: Hematocrit (blood only) 30.3 % (37.0-47.0); Hemoglobin 10.4 g/dl (12.0-16.0); Mean Corpuscular Hemoglobin 32.1 pg (25.0-34.0); Mean Corpuscular Volume 93.5 fL (80.0-100.0); Platelet Count 267 K/uL (130-400); RDW Standard Deviation 39.3 fL (36.4-46.3); Red Blood Count 3.24 M/uL (4.20-5.40); White Blood Count 8.79 K/ul (4.8-10.8)
[2025-08-27 06:32] LABS: Anion Gap 4.0 (3-11); Blood Urea Nitrogen 10.0 mg/dl (6-23); Calcium 8.2 mg/dl (8.6-10.3); Carbon Dioxide 29.0 mmol/L (21-32); Chloride 100.0 mmol/L (98-107); Creatinine Clr Calc Pharmacy 47.0 ml/min; Glucose 141.0 mg/dl (70-99(Fasting)); Potassium 4.1 mmol/L (3.5-5.1); Sodium 133.0 mmol/L (136-145)
--- NOTE | 2025-08-27 07:38 | Orthopedic Progress Note ---
Date of Service August 27, 2025 Assessment & Plan Admission and Anticipated Discharge Date Admission Date: August 26, 2025 Orthopedic Progress Note Postop day #1 status post conversion of patellofemoral replacement to total knee replacement right lower extremity. Patient had on and off sleep all night. Pain is managed by oral meds. She denies chest pain shortness of breath fever chills nausea vomiting or headache. Vital signs are stable she is afebrile. Neurovascular check femoral sciatic nerve is normal. Wound dressing is changed wound is essentially dry. Expected bruising noted. Expected swelling noted. Calves nontender. She can do straight leg raise. She can flex to about 30 to 40 degrees. Laboratory work is stable hematocrit is 30. Wound dressing changed placed compressive dressing with Chema stocking. She is to leave that in place. That should not be changed until Sunday. There is any issues she should call the office. Home services to start tomorrow. PA to complete the discharge depart process.
[2025-08-27 08:06] VITALS: BP 109/65; RESP 14; O2SAT 93
--- NOTE | 2025-08-27 08:20 | Orthopedic Progress Note ---
Date of Service August 27, 2025 Assessment & Plan (1) Status post right knee replacement: Plan: The patient was educated regarding today's findings. Conservative care measures were discussed. Her dressing has already been changed. She may leave this in place through the weekend. It can be changed on Sunday by home health services if needed. Importance of icing and elevating the leg frequently was emphasized. Continue with her knee immobilizer when out of bed today and tomorrow. It can be discontinued entirely on Sunday morning. Prescriptions for Keflex 500 mg, prednisone 20 mg, Percocet 5/325 mg, and Eliquis 2.5 mg were sent to her pharmacy. Start the Eliquis and Keflex tonight. Start the prednisone tomorrow morning. Take the Percocet every 6 hours as needed. Follow-up with me in the office in 2 weeks as scheduled. Call the office with any other concerns. Written discharge instructions were provided. Admission and Anticipated Discharge Date Admission Date: August 26, 2025 Subjective This 65 year old female is seen today in her room. She is 1 day status post right knee conversion from trochlear implant to total knee arthroplasty. She states her pain is controlled. She did not sleep well secondary to discomfort and interruptions. She denies any chest pain, shortness of breath, nausea, vomiting, or abdominal pain. She would like to go home today. She has already finished her breakfast. No additional complaints. Review of Systems Review of Systems: Unchanged from yesterday. Physical Exam Physical Exam: General: Well-developed, well-nourished, middle-aged female, in no acute distress. Laying in bed. Alert and oriented. Skin: Warm and dry with good turgor. Postsurgical dressing on the right knee has already been changed by Dr. Vargas. Musculoskeletal: The patient has intact motor function of her right leg. She is able to perform a straight leg raise. Intact motor function to her toes, ankle, and knee. She has intact active flexion and extension. Neurologic: Gross sensation is intact across the right leg by soft touch. Peripheral pulses are 2+. Results & Data Vital Signs (Past 12 Hours) Vital Signs Temp Pulse Resp BP Pulse Ox O2 Del Method 08/27/25 08:00 36.8 C 81 14 109/65 93 Room Air 08/27/25 04:12 36.8 C 83 16 109/66 94 Room Air 08/26/25 23:38 36.4 C L 88 16 116/66 95 Room Air Laboratory Results CBC obtained this morning shows a white count of 8.79. H&H of 10.4 and 30.3. Platelets 267,000. PRP this morning shows sodium 133, potassium 4.1, CO2 29. BUN of 10 with creatinine 0.56. Glucose this morning is 141.
[2025-08-27] MEDS: dexAMETHasone 10 MG in SYRINGE 0 ML IV SCH (09:16)
[2025-08-27] MEDS: APIXABAN 2.5 MG TAB PO SCH (09:39)
[2025-08-27] MEDS: MULTIVITAMIN TAB PO SCH (09:39)
[2025-08-27] MEDS: ATORVASTATIN 20 MG TAB PO SCH (09:39)
[2025-08-27 11:41] VITALS: PULSE 88
== END 2025-08-27 11:41 | disposition home health service (06) ==
LOC: 3N 05:34 → ASU 05:34